=== PATIENT | male | born 1945 | race Caucasian/White ===

== ENCOUNTER → 2016-09-08 06:34 | Day surgery (SDC) | payer MEDICARE, BC ==
[~2016-09-08 06:34] MED LIST: Buffered Lidocaine 1% SYRIN* 3 ML/SYR SYRINGE INTRADERM ONE; Bupivacaine 0.25% SDV* 30 ML ONE; Midazolam* 1 MG/ML 5 ML VIAL (5 MG) ONE; Propofol* 10 MG/ML 20 ML BTL IV PUSH ONE; fentaNYL* 50 MCG/ML 2 ML VIAL (100 MCG VIAL) ONE
[2016-09-08 08:55] VITALS: BP 115/61
--- NOTE | 2016-09-09 01:33 | OP ---
DATE OF ADMISSION: 09/08/16 [facility] DATE OF : 47 SURGEON: Adams Goncalves MD TELEPHONE SWITCHBOARD OPERATOR: KIAH Allen ANESTHESIOLOGIST: Dr. Cheng. ANESTHESIA: Local MAC. PRE-OP DIAGNOSIS: Right carpal tunnel syndrome. POST-OP DIAGNOSIS: Right carpal tunnel syndrome. OPERATIVE PROCEDURE: Right open carpal tunnel release. INDICATIONS: Earl is a 70-year-old male who has signs and symptoms of carpal tunnel syndrome. He had tried some nonoperative treatment. We talked about risks and benefits. He elected to proceed with surgery. EBL: 5 mL. COMPLICATIONS: None. FINDINGS: As expected. DESCRIPTION OF PROCEDURE: Earl was seen in the preoperative holding area and the correct side, site, and procedure were identified. We came back to the operating room. We had a timout and then I infiltrated the operative area with 0.25% Marcaine. The arm was then prepped and draped in the usual fashion and formal time-out was performed. I made a 2 to 3 cm longitudinal incision in the standard location for an open carpal tunnel release. Dissection was carried down through the skin and subcutaneous tissue and palmar fascia to expose the transverse carpal ligament. I then began the release distally and the released the transverse carpal ligament from the distal to proximal just off the radial aspect of the hook of the hamate. When I got to the level of the proximal aspect of the incision, I released and retracted this ulnarly and superficially with the Jackie retractor. Under direct visualization, the remainder of the transverse carpal ligament and distal antebrachial fascia was released to a level of about 4 or 5 cm proximal to the volar wrist flexion crease just off the ulnar aspect of the palmaris longus tendon. I then checked the decompression and then there was no compression on the nerve proximally or distally. At this point, I irrigated out the wound and the skin was closed with some 4-0 nylon suture. The wound was dressed with Xeroform, 4x4's, sterile Webril, and an Solomon wrap. Tourniquet was then deflated. The arm had been exsanguinated and tourniquet inflated to 250 mmHg prior to making skin incision. Fingers pinked up immediately. He was then taken to the recovery room in stable condition. [id number]/[facility] #: [id number]
== END | disposition home or self-care (01) ==
LOC: OREAST 06:34
PROVIDERS: ATTEND Orthopaedic Surgery Hand Surgery
DX: G56.01 Carpal tunnel syndrome, right upper limb (principal); E11.8 Type 2 diabetes mellitus with unspecified complications; Z79.84 Long term (current) use of oral hypoglycemic drugs; I25.2 Old myocardial infarction; I10 Essential (primary) hypertension; Z95.5 Presence of coronary angioplasty implant and graft
CPT/HCPCS: J2250; J2704; J3010